=== PATIENT | male | born 1985 | race Caucasian/White ===

== ENCOUNTER 2023-08-07 15:21 | Emergency (ER) | payer MEDICAID, SELFPAY ==
[2023-08-07] VITALS (17 sets, daily range): BP systolic 141–159; BP diastolic 93–96; PULSE 58–73; RESP 16–26; TEMP 36.4; O2SAT 98–100; BMI 32.1
--- NOTE | 2023-08-07 15:36 | XRR_ITS ---
PROCEDURE INFORMATION: Exam: XR Left Shoulder Exam date and time: 08/07/2023 3:44 PM Age: 38 years old Clinical indication: Other: Poss dislocation TECHNIQUE: Imaging protocol: Radiologic exam of the left shoulder. Views: 2 or more views. COMPARISON: No relevant prior studies available. FINDINGS: Bones/joints: Anterior dislocation. Possible Hill-Sachs impaction. Soft tissues: Normal. XR/XR shoulder LT min 2V* [id number] IMPRESSION: Anterior dislocation. Possible Hill-Sachs impaction.
--- NOTE | 2023-08-07 15:54 | PC.PHAR ---
pt states takes no rx or otc meds
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
[2023-08-07] MEDS: fentaNYL 50 mcg/mL INJ 2mL 100 MCG IVP (16:55)
[2023-08-07] MEDS: midazolam 1 mg/mL INJ 2 mL 6 MG IVP (16:55)
--- NOTE | 2023-08-07 16:59 | XRR_ITS ---
PROCEDURE INFORMATION: Exam: XR Left Shoulder Exam date and time: 08/07/2023 5:01 PM Age: 38 years old Clinical indication: Injury or trauma; Other: Post-reduction; Other: Unknown; Additional info: Post reduction TECHNIQUE: Imaging protocol: Radiologic exam of the left shoulder. Views: 2 or more views. COMPARISON: CR XR shoulder LT min 2V* [id number] 08/07/2023 3:44 PM FINDINGS: Bones/joints: Normal. Soft tissues: Normal. XR/XR shoulder LT min 2V* [id number] IMPRESSION: Unremarkable AP view of the left shoulder postreduction.
--- NOTE | 2023-08-07 17:19 | PC.NURSE ---
4MG VERSED GIVEN PER DR REYNA. REMAINING 2MG WASTED WITH COLLINS NXI RN
--- NOTE | 2023-08-07 17:29 | DCPLANNER ---
Referral was sent to the ortho clinic on 08/07/23 at [id number]. clinic to contact patient
[2023-08-07] MEDS: tetanus-dipt-pertussis 0.5 mL SDV IM (17:40)
== END 2023-08-07 18:20 | disposition home or self-care (01) ==
PROVIDERS: Emergency Provider Family Medicine
DX: S43.005A Unspecified dislocation of left shoulder joint, initial encounter (principal); Z72.0 Tobacco use; S60.512A Abrasion of left hand, initial encounter; S80.812A Abrasion, left lower leg, initial encounter; S80.811A Abrasion, right lower leg, initial encounter; V19.3XXA Pedal cyclist (driver) (passenger) injured in unspecified nontraffic accident, initial encounter; Z23 Encounter for immunization
CPT/HCPCS: 23650; 73030; 90471; 90715; 99151; 99285; J2250; J3010

== ENCOUNTER 2025-03-08 21:36 | Emergency (ER) | payer SELFPAY ==
[2025-03-08 21:40] VITALS: BP 118/79; PULSE 90; RESP 16; TEMP 36.6; O2SAT 98
--- NOTE | 2025-03-09 01:14 | ED_ITS ---
HPI - Wound/Laceration General: Chief Complaint: Wound/Laceration Stated Complaint: right hand injured, swollen Time Seen by Provider: 03/09/25 01:03 History of Present Illness: Giacomo Mendosa presents to the ER with a suspected infected splinter in his hand. The patient reports noticing a small red spot on his hand yesterday, which has significantly worsened overnight. The patient states he doesn't remember getting a splinter but noticed that half of it seemed to come out when he attempted to remove it. He believes the other half may still be embedded in his hand. The affected area is described as pretty friggin' tender and has become increasingly painful and swollen since yesterday. The patient reports that the infection appears to be spreading, as the red area has expanded noticeably since he first observed it. When asked about the type of splinter, the patient believes it was wood but is not certain. He mentions that the splinter appeared to break off when he was trying to remove it. The patient expresses concern about the rapid progression of symptoms and the possibility of residual splinter material in his hand. Related Data Previous Rx's ?Medication ?Instructions ?Recorded hydrocodone 5 mg-acetaminophen 325 1 tab PO Q6H PRN pa in #15 tabs 08/07/23 mg tablet cephalexin 750 mg capsule 750 mg PO Q8H 7 days #21 cap s 03/09/25 Allergies Allergy/AdvReac Type Severity Reaction Status Date / Time No Known Allergies Allergy Verified 03/08/25 21:44 Review of Systems General: Reports: 10 or more systems reviewed and unremarkable except in HPI and below PFSH ED PFSH: Medical History (Updated 03/09/25 @ 01:15 by Mike Snyder DO) Strain of neck muscle Social History (Updated 05/28/20 @ 14:07 by Rosario Soto LPN) Smoking and tobacco/nicotine status: current every day tobacco/nicotine user Alcohol intake: never Substance/Drug Use: never Physical Exam Const: COMMON NORMALS: no acute distress, patient oriented x3, healthy appearing, alert and well nourished HENMT: COMMON NORMALS: normocephalic HEAD & SCALP: normocephalic Eye: COMMON NORMALS: EOMs intact bilaterally Neck/C-Spine: COMMON NORMALS: full ROM and supple Resp: COMMON NORMALS: normal respiratory effort, No retractions and clear to auscultation bilaterally AUSCULTATION: clear to auscultation bilaterally Cardio: COMMON NORMALS: regular rate, regular rhythm, No gallops present (Cardio) and No murmurs present (Cardio) RATE: regular rate RHYTHM: regular rhythm GI: COMMON NORMALS: Soft to palpation and non-tender PALPATION: Yes Soft to palpation Extremity: GENERAL: Yes normal exam except as noted Neuro: COMMON NORMALS: patient oriented x3 SENSORIUM/ORIENTATION: Yes alert Skin: NARRATIVE SKIN EXAM: Erythema on the dorsum of the right hand circumferential around the 5th MCP joint. Fluctuant mass under the area of erythema. Procedures Abscess I/D Site: hand Side (if applicable): right Sedation/analgesia: none Technique: needle aspiration Amount of fluid expressed (mL): 0 Complications: other (Very little pus expressed. Fluctuant mass persisted after incision.) Course Vital Signs: Vital signs: Vital Signs Temperature 98 F 03/08/25 21:40 Pulse Rate 90 03/08/25 21:40 Respiratory Rate 16 03/08/25 21:40 Blood Pressure 118/79 03/08/25 21:40 Pulse Oximetry 98 03/08/25 21:40 MDM - Wound/Laceration Medical Decision Making 39-year-old male presents to the emergency department for evaluation of concern for splinter with infection. I&D of abscess attempted with no success. Plan to start the patient on antibiotics. Encouraged him to follow-up with his primary care physician for further management of this abscess and foreign body. Counseled the patient that if it is a splinter it would likely come out without surgical intervention. Return precautions were discussed and the patient was discharged home in good condition. No radiology studies performed this visit Discharge Plan Discharge Patient Disposition: Home Clinical Impression: Cellulitis and abscess of hand Condition: Stable Prescriptions: New cephalexin 750 mg capsule 750 mg PO Q8H 7 Days Qty: 21 0RF No Action hydrocodone-acetaminophen 5-325 mg tablet 1 tab PO Q6H PRN (Reason: pain) Qty: 15 0RF Discharge Orders: Discharge ED (Routine); Ordered 03/09/25 Ordered By: [employer] Discharge Diet: Advance as tolerated Discharge Activity: Resume usual activity Patient Instructions: Opioid Safety, Pain Management Activity Restrictions/Additional Instructions: Please follow-up with your primary care provider for further management of the cellulitis. Please take all antibiotics until completely gone. Follow-up in the emergency department for new or worsening symptoms Print Language: Dominican Coding Level of Care Code ED Case Maker for Celio Lutz
[2025-03-09 01:48] VITALS: BP 124/70; PULSE 76; RESP 16; O2SAT 99
== END 2025-03-09 01:50 | disposition home or self-care (01) ==
PROVIDERS: Emergency Provider General Practice
DX: L03.113 Cellulitis of right upper limb (principal); L02.511 Cutaneous abscess of right hand; S60.551A Superficial foreign body of right hand, initial encounter; W45.8XXA Other foreign body or object entering through skin, initial encounter; F17.200 Nicotine dependence, unspecified, uncomplicated
CPT/HCPCS: 10060; 99283